=== PATIENT | male | born 1960 | race Caucasian/White ===

== ENCOUNTER 2017-02-04 01:04 | Emergency (ER) | payer MEDICAID ==
[~2017-02-04] VITALS: Ht 180.3 cm; Wt 102.0 kg
[~2017-02-04 01:04] MED LIST: DIVA125T2 PO; FLEXERIL; LISI-170 PO; LOPRESSOR; THORAZINE; TRAZ100T15 PO; TRAZADONE
[2017-02-04] MEDS ORDERED: SODIUM CHLORIDE FLUSH 10ML SYR IVF ONE (01:30)
[2017-02-04] MEDS ORDERED: ONDANSETRON 2MG/ML, 2ML IVPush ONE (01:30)
[2017-02-04] MEDS ORDERED: MORPHINE SULFATE 4 MG/ML, 1ML IVPush PRN (01:30)
[2017-02-04] MEDS ORDERED: NITROGLYCERIN OINT 2%, 1GM TP ONE ×2 (01:30→01:47)
[2017-02-04] MEDS ORDERED: MORPHINE SULFATE 4 MG/ML, 1ML ONE ×2 (01:47→03:04)
[2017-02-04 02:02] LABS: BLOOD UREA NITROGEN 7 mg/dL (7-18)
[2017-02-04 02:08] LABS: IS PT STATUS REG ER OR PRE ER? YES
[2017-02-04] MEDS ORDERED: MORPHINE SULFATE 4 MG/ML, 1ML IVPush ONE (03:30)
[2017-02-04 06:09] VITALS: BP 127/72
== END 2017-02-04 06:18 | disposition home or self-care (01) ==
LOC: ED 03:19
DX: R07.2 Precordial pain (principal); R11.2 Nausea with vomiting, unspecified; F17.200 Nicotine dependence, unspecified, uncomplicated; I10 Essential (primary) hypertension; F43.10 Post-traumatic stress disorder, unspecified
CPT/HCPCS: 36415; 71010; 80048; 82040; 83880; 84484; 85025; 85610; 85730; 93005; 96374; 96376

== ENCOUNTER 2017-04-13 12:36 | Emergency (ER) | payer SELFPAY ==
[~2017-04-13] VITALS: Ht 180.3 cm; Wt 80.0 kg
[2017-04-13] MEDS ORDERED: NITROGLYCERIN OINT 2%, 1GM TP ONE ×2 (13:00→13:15)
[2017-04-13] MEDS ORDERED: SODIUM CHLORIDE 0.9% 1,000ML IVBOLUS ONE (13:00)
[2017-04-13] MEDS ORDERED: SODIUM CHLORIDE FLUSH 10ML SYR IVF ONE (13:00)
[2017-04-13] MEDS ORDERED: LORazepam 0.5MG TABLET ONE (13:27)
[2017-04-13] MEDS ORDERED: LORazepam 0.5MG TABLET PO ONE (13:30)
[2017-04-13 14:02] LABS: HEMATOCRIT 51.7 % (39.2-51.8); HEMOGLOBIN 17.9 g/dL (13.7-18.0); WHITE BLOOD COUNT 8.8 x10^3/uL (3.4-10)
[2017-04-13 14:04] LABS: BLOOD UREA NITROGEN 12 mg/dL (7-18)
[2017-04-13 14:08] LABS: IS PT STATUS REG ER OR PRE ER? YES
[2017-04-13 14:53] VITALS: BP 137/88
== END 2017-04-13 14:57 | disposition home or self-care (01) ==
LOC: ED 13:58
DX: R07.89 Other chest pain (principal); E11.9 Type 2 diabetes mellitus without complications; I10 Essential (primary) hypertension; F17.200 Nicotine dependence, unspecified, uncomplicated; I48.91 Unspecified atrial fibrillation; F43.10 Post-traumatic stress disorder, unspecified
CPT/HCPCS: 36415; 71010; 80048; 82040; 83880; 84484; 85025; 93005; 96360; 99285; J7030

== ENCOUNTER 2017-04-17 22:46 | Observation (INO) | payer OTHER ==
[~2017-04-17] VITALS: Ht 180.3 cm; Wt 98.7 kg
[2017-04-17 23:45] LABS: HEMATOCRIT 48.5 % (39.2-51.8); WHITE BLOOD COUNT 8.9 x10^3/uL (3.4-10)
[2017-04-17 23:46] LABS: BLOOD UREA NITROGEN 6 mg/dL (7-18)
[2017-04-18 00:05] LABS: ACETAMINOPHEN < 2 mcg/mL (10-30)
[2017-04-18 00:11] LABS: DAU SCREEN DISCLAIMER
[2017-04-18] MEDS ORDERED: LORazepam 1MG TABLET ONE (09:02)
[2017-04-18] MEDS ORDERED: ASPIRIN 81 MG TABLET EC PO SCH (09:30)
[2017-04-18] MEDS ORDERED: NICOTINE 21 MG/24 HR PATCH.TD24 TD SCH (09:30)
[2017-04-18] MEDS ORDERED: ONDANSETRON ODT 4 MG PO PRN (09:30)
[2017-04-18] MEDS ORDERED: HALOPERIDOL 5 MG TABLET PO PRN (09:30)
[2017-04-18] MEDS ORDERED: LORazepam 1MG TABLET PO ONE (09:30)
[2017-04-18] MEDS ORDERED: DIVALPROEX 500 MG TAB.ER.24H PO SCH (09:30)
[2017-04-18] MEDS ORDERED: ACETAMINOPHEN 325 MG TABLET PO PRN (09:30)
[2017-04-18] MEDS: GUAIFENESIN 200 MG TABLET PO SCH ×3 (10:51→21:00)
[2017-04-18 11:04] VITALS: BP 127/67
[2017-04-18] MEDS: LORazepam 2 MG/ML, 1ML IM PRN ×2 (13:26→17:28)
[2017-04-18 19:31] VITALS: BP 122/69
[2017-04-18] MEDS: SIMVASTATIN 20 MG TABLET PO SCH (21:00)
[2017-04-19] MEDS: BACLOFEN 10 MG TABLET PO SCH ×3 (01:06→21:46)
[2017-04-19] MEDS: LORazepam 1MG TABLET PO PRN ×6 (01:07→23:58)
[2017-04-19 01:38] VITALS: BP 131/78
[2017-04-19 06:06] LABS: ASPARTATE AMINO TRANSFERASE 55 U/L (15-37); BLOOD UREA NITROGEN 10 mg/dL (7-18)
[2017-04-19] MEDS ORDERED: NICOTINE 21 MG/24 HR PATCH.TD24 TD SCH (07:00)
[2017-04-19] MEDS: FOLIC ACID 1 MG TABLET PO SCH (07:56)
[2017-04-19] MEDS: GUAIFENESIN 200 MG TABLET PO SCH ×3 (07:56→21:46)
[2017-04-19] MEDS: ASPIRIN 81 MG TABLET EC PO SCH (07:56)
[2017-04-19] MEDS: THIAMINE 100MG TABLET PO SCH (07:56)
[2017-04-19] MEDS: MULTIVITAMIN 1 TABLET PO SCH (07:56)
[2017-04-19 07:59] VITALS: BP 112/75
[2017-04-19 13:39] VITALS: BP 126/75
[2017-04-19 17:57] VITALS: BP 131/77
[2017-04-19 19:36] VITALS: BP 126/71
[2017-04-19] MEDS: SIMVASTATIN 20 MG TABLET PO SCH (21:47)
[2017-04-20] MEDS: LORazepam 1MG TABLET PO PRN ×2 (05:56→11:52)
[2017-04-20] MEDS: ASPIRIN 81 MG TABLET EC PO SCH (05:56)
[2017-04-20] MEDS: GUAIFENESIN 200 MG TABLET PO SCH ×2 (05:56→10:53)
[2017-04-20 07:22] VITALS: BP 136/87
[2017-04-20] MEDS: FOLIC ACID 1 MG TABLET PO SCH (08:15)
[2017-04-20] MEDS: THIAMINE 100MG TABLET PO SCH (08:15)
[2017-04-20] MEDS: BACLOFEN 10 MG TABLET PO SCH (08:15)
[2017-04-20] MEDS: MULTIVITAMIN 1 TABLET PO SCH (08:15)
== END 2017-04-20 15:03 ==
LOC: ED 23:59 → EDIP 04-18 08:02 → 3E 04-18 10:09 → UNDODISOB 04-18 20:11 → 4NOR 04-19 00:56 → 3E 04-19 17:33
PROVIDERS: ADMIT Hospitalist; ATTEND Internal Medicine
DX: R45.851 Suicidal ideations (principal); E11.9 Type 2 diabetes mellitus without complications; E78.5 Hyperlipidemia, unspecified; F10.220 Alcohol dependence with intoxication, uncomplicated; K70.10 Alcoholic hepatitis without ascites; F31.9 Bipolar disorder, unspecified; F41.1 Generalized anxiety disorder; F43.10 Post-traumatic stress disorder, unspecified; I10 Essential (primary) hypertension; I48.0 Paroxysmal atrial fibrillation; K74.60 Unspecified cirrhosis of liver; R45.850 Homicidal ideations; Y90.7 Blood alcohol level of 200-239 mg/100 ml; Z82.49 Family history of ischemic heart disease and other diseases of the circulatory system; Z86.73 Personal history of transient ischemic attack (TIA), and cerebral infarction without residual deficits; Z87.891 Personal history of nicotine dependence; Z90.49 Acquired absence of other specified parts of digestive tract
CPT/HCPCS: 36415; 80048; 80053; 80307; 80329; 82040; 83735; 85025; 93005; 96372; 99285; G0378; J2060; G0479; G0480

== ENCOUNTER 2017-04-23 00:15 | Observation (INO) | payer MEDICAID, OTHER ==
[~2017-04-23] VITALS: Ht 180.3 cm; Wt 97.3 kg
[2017-04-23] MEDS ORDERED: TRAZ50TA18 PO (00:28)
[2017-04-23] MEDS ORDERED: DIVA125T2 PO (00:28)
[2017-04-23 01:05] LABS: BLOOD UREA NITROGEN 10 mg/dL (7-18)
[2017-04-23 01:06] LABS: HEMATOCRIT 46.8 % (39.2-51.8); HEMOGLOBIN 16.2 g/dL (13.7-18.0); WHITE BLOOD COUNT 11.4 x10^3/uL (3.4-10)
[2017-04-23 01:15] LABS: ACETAMINOPHEN < 2 mcg/mL (10-30)
[2017-04-23] MEDS ORDERED: ACETAMINOPHEN 325 MG TABLET PO PRN (05:00)
[2017-04-23] MEDS ORDERED: LORazepam 1MG TABLET ONE ×2 (06:00→15:28)
[2017-04-23] MEDS: LORazepam 1MG TABLET PO PRN ×3 (06:01→15:31)
[2017-04-23] MEDS ORDERED: DIVALPROEX 125 MG TABLET.DR PO SCH (09:00)
[2017-04-23] MEDS ORDERED: TRAZODONE 50MG TABLET PO SCH (09:00)
[2017-04-23 17:27] LABS: DAU SCREEN DISCLAIMER
[2017-04-23 20:04] VITALS: BP 102/63
[2017-04-23] MEDS: TRAZODONE 50MG TABLET PO SCH (21:00)
[2017-04-24] MEDS: TRAZODONE 50MG TABLET PO SCH ×2 (00:07→20:14)
[2017-04-24 02:59] VITALS: BP 105/70
[2017-04-24] MEDS ORDERED: ONDANSETRON ODT 4 MG PO PRN ×3 (03:00→19:00)
[2017-04-24 08:38] VITALS: BP 111/72
[2017-04-24] MEDS ORDERED: LOPERAMIDE 2 MG CAPSULE PO PRN ×2 (09:00)
[2017-04-24] MEDS: LORazepam 1MG TABLET PO PRN ×2 (14:28→17:55)
[2017-04-24 19:30] VITALS: BP 96/57
[2017-04-24] MEDS: LOPERAMIDE 2 MG CAPSULE PO PRN (19:42)
[2017-04-24 20:10] VITALS: BP 103/64
[2017-04-25] MEDS: LOPERAMIDE 2 MG CAPSULE PO PRN ×2 (07:59→23:54)
[2017-04-25 08:55] VITALS: BP 105/63
[2017-04-25 19:37] VITALS: BP 101/62
[2017-04-25] MEDS: LORazepam 1MG TABLET PO PRN ×2 (19:40→19:46)
[2017-04-25] MEDS: OLANZAPINE 5 MG TABLET PO SCH (21:13)
[2017-04-25] MEDS: DIVALPROEX 500 MG TAB.ER.24H PO SCH (21:13)
[2017-04-26 08:00] VITALS: BP 101/60
[2017-04-26] MEDS: DIVALPROEX 500 MG TAB.ER.24H PO SCH ×2 (10:01→19:57)
[2017-04-26] MEDS: LOPERAMIDE 2 MG CAPSULE PO PRN (16:23)
[2017-04-26] MEDS: OLANZAPINE 5 MG TABLET PO SCH (19:58)
[2017-04-26 20:00] VITALS: BP 113/66
[2017-04-27 08:45] VITALS: BP 104/67
[2017-04-27] MEDS: DIVALPROEX 500 MG TAB.ER.24H PO SCH ×2 (08:53→21:05)
[2017-04-27] MEDS: FAMOTIDINE 20 MG TABLET PO SCH ×2 (10:48→21:05)
[2017-04-27] MEDS: LOPERAMIDE 2 MG CAPSULE PO PRN (14:55)
[2017-04-27 19:45] VITALS: BP 123/78
[2017-04-27] MEDS: OLANZAPINE 5 MG TABLET PO SCH (21:05)
[2017-04-28 08:00] VITALS: BP 112/71
[2017-04-28] MEDS: FAMOTIDINE 20 MG TABLET PO SCH ×2 (08:26→20:20)
[2017-04-28] MEDS: DIVALPROEX 500 MG TAB.ER.24H PO SCH ×2 (08:26→20:20)
[2017-04-28] MEDS: LORazepam 1MG TABLET PO PRN (14:00)
[2017-04-28 20:00] VITALS: BP 121/73
[2017-04-28] MEDS: OLANZAPINE 5 MG TABLET PO SCH (20:20)
[2017-04-29 07:30] VITALS: BP 137/80
[2017-04-29] MEDS: LOPERAMIDE 2 MG CAPSULE PO PRN (08:03)
[2017-04-29] MEDS: LORazepam 1MG TABLET PO PRN (08:03)
[2017-04-29] MEDS: FAMOTIDINE 20 MG TABLET PO SCH (08:03)
[2017-04-29] MEDS: DIVALPROEX 500 MG TAB.ER.24H PO SCH (08:03)
[2017-04-29] MEDS ORDERED: LACTULOSE 3.3 GM/5 ML ORAL.SOL RC STA (17:40)
[2017-04-29 18:54] LABS: ASPARTATE AMINO TRANSFERASE 20 U/L (15-37); BLOOD UREA NITROGEN 9 mg/dL (7-18)
[2017-04-29 18:57] LABS: HEMATOCRIT 45.6 % (39.2-51.8); HEMOGLOBIN 15.8 g/dL (13.7-18.0); WHITE BLOOD COUNT 8.9 x10^3/uL (3.4-10)
[2017-04-29] MEDS: LACTULOSE 20 GM/30 ML UDC PO SCH ×2 (21:00→22:16)
[2017-04-29 21:30] VITALS: BP 135/74
[2017-04-29] MEDS: D5%-LACTATED RINGERS 1,000 ML IV SCH (22:16)
[2017-04-30] MEDS ORDERED: LACTULOSE 20 GM/30 ML UDC PO ONE
[2017-04-30 00:05] VITALS: BP 135/74
[2017-04-30 00:48] VITALS: BP 142/82
[2017-04-30] MEDS: LORazepam 1MG TABLET PO PRN ×4 (01:00→22:04)
[2017-04-30] MEDS: D5%-LACTATED RINGERS 1,000 ML IV SCH (05:48)
[2017-04-30] MEDS: LACTULOSE 20 GM/30 ML UDC PO SCH ×4 (05:49→22:03)
[2017-04-30 06:11] LABS: ASPARTATE AMINO TRANSFERASE 22 U/L (15-37); BLOOD UREA NITROGEN 6 mg/dL (7-18)
[2017-04-30 06:15] LABS: HEMATOCRIT 43.5 % (39.2-51.8); HEMOGLOBIN 15.2 g/dL (13.7-18.0); WHITE BLOOD COUNT 8.4 x10^3/uL (3.4-10)
[2017-04-30] MEDS ORDERED: POTASSIUM CHLORIDE 20 MEQ TAB.ER.PRT PO ONE (06:30)
[2017-04-30 06:42] VITALS: BP 123/66
[2017-04-30] MEDS: D5%-LR+KCL 20MEQ 1,000 ML IV SCH ×2 (11:04→22:04)
[2017-04-30] MEDS ORDERED: POTASSIUM CHLORIDE 10 MEQ TABLET.ER ONE (11:07)
[2017-04-30 12:28] VITALS: BP 138/88
[2017-04-30] MEDS: ACETAMINOPHEN 325 MG TABLET PO PRN (13:05)
[2017-04-30 19:07] VITALS: BP 135/77
[2017-05-01 01:29] VITALS: BP 131/83
[2017-05-01] MEDS: ACETAMINOPHEN 325 MG TABLET PO PRN ×2 (02:12→19:42)
[2017-05-01] MEDS: LORazepam 1MG TABLET PO PRN ×4 (02:12→19:42)
[2017-05-01] MEDS: LACTULOSE 20 GM/30 ML UDC PO SCH ×3 (05:53→21:00)
[2017-05-01 06:43] LABS: BLOOD UREA NITROGEN 7 mg/dL (7-18); HIV 1&2 ANTIBODY SCREEN Nonreactive (Nonreactive); HIV-1 p24 ANTIGEN Nonreactive (Nonreactive)
[2017-05-01 07:01] LABS: HEP B SURF. AB < 3.1 mIU/mL (0.0-10.0)
[2017-05-01] MEDS ORDERED: POTASSIUM CHLORIDE 20 MEQ TAB.ER.PRT PO ONE (09:30)
[2017-05-01] MEDS ORDERED: LACTULOSE 3.3 GM/5 ML ORAL.SOL RC ONE (09:30)
[2017-05-01] MEDS: D5%-LR+KCL 20MEQ 1,000 ML IV SCH ×2 (10:26→17:03)
[2017-05-01] MEDS ORDERED: LACTULOSE 20 GM/30 ML UDC PO SCH (11:00)
[2017-05-01 15:03] VITALS: BP 130/76
[2017-05-01 20:00] VITALS: BP 160/105
[2017-05-01 21:34] VITALS: BP 140/82
[2017-05-02] MEDS: LORazepam 1MG TABLET PO PRN ×4 (01:09→21:16)
[2017-05-02] MEDS: ACETAMINOPHEN 325 MG TABLET PO PRN ×3 (01:09→21:16)
[2017-05-02 02:00] VITALS: BP 131/78
[2017-05-02] MEDS: D5%-LR+KCL 20MEQ 1,000 ML IV SCH (04:00)
[2017-05-02] MEDS: LACTULOSE 20 GM/30 ML UDC PO SCH ×4 (04:57→21:16)
[2017-05-02 06:48] VITALS: BP_SYST 130; BP_DIAS 80; BP_DIAS 82
[2017-05-02] MEDS ORDERED: LORazepam 2 MG/ML, 1ML IM PRN (08:00)
[2017-05-02] MEDS: ZIPRASIDONE 20 MG INJ IM PRN (12:45)
[2017-05-02 14:00] VITALS: BP 135/73
[2017-05-02 18:56] VITALS: BP 152/87
[2017-05-03] MEDS: ACETAMINOPHEN 325 MG TABLET PO PRN ×2 (01:11→05:31)
[2017-05-03] MEDS: LORazepam 1MG TABLET PO PRN ×4 (01:11→16:28)
[2017-05-03 01:20] VITALS: BP 129/78
[2017-05-03] MEDS: LACTULOSE 20 GM/30 ML UDC PO SCH ×4 (05:33→21:00)
[2017-05-03 08:01] VITALS: BP 141/83
[2017-05-03 13:55] VITALS: BP 123/82
[2017-05-03 19:05] VITALS: BP 144/83
[2017-05-03] MEDS: ZIPRASIDONE 20 MG INJ IM PRN (21:27)
[2017-05-04 02:23] VITALS: BP 162/89
[2017-05-04] MEDS: ACETAMINOPHEN 325 MG TABLET PO PRN (02:28)
[2017-05-04] MEDS: LORazepam 1MG TABLET PO PRN ×2 (02:28→13:16)
[2017-05-04] MEDS: ZIPRASIDONE 20 MG INJ IM PRN ×2 (03:55→20:59)
[2017-05-04] MEDS: LACTULOSE 20 GM/30 ML UDC PO SCH ×4 (06:00→20:58)
[2017-05-04 07:15] VITALS: BP 158/90
[2017-05-04] MEDS ORDERED: LORazepam 2 MG/ML, 1ML IM PRN (08:30)
[2017-05-04] MEDS: OLANZAPINE 5 MG TABLET PO SCH ×2 (10:11→13:15)
[2017-05-04 12:40] VITALS: BP 122/74
[2017-05-04] MEDS ORDERED: POTASSIUM CHLORIDE 20 MEQ TAB.ER.PRT PO ONE (18:30)
[2017-05-04 19:57] VITALS: BP 147/94
[2017-05-04] MEDS ORDERED: ZIPRASIDONE 20MG CAPSULE PO PRN (20:30)
[2017-05-05 07:07] LABS: BLOOD UREA NITROGEN 8 mg/dL (7-18)
[2017-05-05 08:00] VITALS: BP 118/73
[2017-05-05] MEDS: ACETAMINOPHEN 325 MG TABLET PO PRN (08:29)
[2017-05-05] MEDS: OLANZAPINE 5 MG TABLET PO SCH (08:29)
[2017-05-05] MEDS: LORazepam 1MG TABLET PO PRN (08:30)
[2017-05-05] MEDS: LACTULOSE 20 GM/30 ML UDC PO SCH ×4 (08:30→20:08)
[2017-05-05 19:30] VITALS: BP 137/83
[2017-05-05] MEDS: ZIPRASIDONE 20 MG INJ IM PRN (19:45)
[2017-05-06] MEDS: LACTULOSE 20 GM/30 ML UDC PO SCH ×4 (06:18→19:28)
[2017-05-06] MEDS: OLANZAPINE 5 MG TABLET PO SCH (08:11)
[2017-05-06] MEDS: LORazepam 1MG TABLET PO PRN ×3 (08:11→19:28)
[2017-05-06 08:45] VITALS: BP 116/73
[2017-05-06] MEDS: ASPIRIN 81 MG TABLET EC PO SCH (10:44)
[2017-05-06 19:30] VITALS: BP 164/75
[2017-05-07] MEDS: ASPIRIN 81 MG TABLET EC PO SCH (06:10)
[2017-05-07] MEDS: LACTULOSE 20 GM/30 ML UDC PO SCH ×4 (06:14→20:06)
[2017-05-07 07:35] VITALS: BP 102/70
[2017-05-07] MEDS: OLANZAPINE 5 MG TABLET PO SCH (08:05)
[2017-05-07] MEDS: LORazepam 1MG TABLET PO PRN ×2 (12:22→20:06)
[2017-05-07 19:23] VITALS: BP 117/73
[2017-05-08] MEDS: LACTULOSE 20 GM/30 ML UDC PO SCH ×4 (06:29→20:11)
[2017-05-08] MEDS: ASPIRIN 81 MG TABLET EC PO SCH (06:29)
[2017-05-08 07:07] VITALS: BP 133/89
[2017-05-08] MEDS: OLANZAPINE 5 MG TABLET PO SCH (08:05)
[2017-05-08] MEDS ORDERED: ACETAMINOPHEN 325 MG TABLET PO PRN (15:30)
[2017-05-08] MEDS ORDERED: ZIPRASIDONE 20MG CAPSULE PO PRN (15:30)
[2017-05-08] MEDS ORDERED: ZIPRASIDONE 20 MG INJ IM PRN (15:30)
[2017-05-08 19:17] VITALS: BP 113/65
[2017-05-08] MEDS ORDERED: TRAZODONE 100MG TABLET ONE (19:17)
[2017-05-08] MEDS ORDERED: TRAZODONE 100MG TABLET PO SCH (21:00)
[2017-05-09] MEDS ORDERED: ONDANSETRON ODT 4 MG PO ONE (05:30)
[2017-05-09] MEDS: LACTULOSE 20 GM/30 ML UDC PO SCH ×3 (05:55→16:34)
[2017-05-09] MEDS: ASPIRIN 81 MG TABLET EC PO SCH (05:56)
[2017-05-09 07:30] VITALS: BP 117/67
[2017-05-09] MEDS: OLANZAPINE 5 MG TABLET PO SCH (08:27)
== END 2017-05-09 18:24 ==
LOC: ED 00:25 → EDIP 03:03 → 3E 09:24 → 3NE 04-29 21:30 → 3E 05-04 19:52
PROVIDERS: ADMIT Hospitalist; ATTEND Hospitalist
DX: R45.851 Suicidal ideations (principal); E78.5 Hyperlipidemia, unspecified; E11.9 Type 2 diabetes mellitus without complications; F41.1 Generalized anxiety disorder; I10 Essential (primary) hypertension; Z86.73 Personal history of transient ischemic attack (TIA), and cerebral infarction without residual deficits; Z90.49 Acquired absence of other specified parts of digestive tract; K70.9 Alcoholic liver disease, unspecified; I48.91 Unspecified atrial fibrillation; F31.9 Bipolar disorder, unspecified; F20.9 Schizophrenia, unspecified; F17.200 Nicotine dependence, unspecified, uncomplicated; F43.10 Post-traumatic stress disorder, unspecified; E87.6 Hypokalemia; K70.40 Alcoholic hepatic failure without coma; K74.60 Unspecified cirrhosis of liver
CPT/HCPCS: 36415; 80048; 80053; 80307; 80329; 81001; 82040; 82140; 83735; 85025; 86703; 86706; 86708; 86803; 87324; 87899; 96360; 96361; 96372; 99285; G0378; J2060; J3480; J3486; Q0162; G0435; G0479; G0480; J7121

== ENCOUNTER 2017-06-10 22:30 | Emergency (ER) | payer MEDICAID, OTHER ==
[~2017-06-10] VITALS: Ht 175.3 cm; Wt 102.0 kg
[~2017-06-10 22:30] MED LIST changes: +TRAZ50TA18 PO
[2017-06-10] MEDS ORDERED: CLON2TAB16 PO (22:53)
[2017-06-11 00:17] LABS: ASPARTATE AMINO TRANSFERASE 41 U/L (15-37); BLOOD UREA NITROGEN 10 mg/dL (7-18)
[2017-06-11 00:20] LABS: HEMATOCRIT 46.4 % (39.2-51.8); HEMOGLOBIN 16.3 g/dL (13.7-18.0); WHITE BLOOD COUNT 7.9 x10^3/uL (3.4-10)
[2017-06-11 00:21] LABS: ACETAMINOPHEN < 2 mcg/mL (10-30)
[2017-06-11 06:38] VITALS: BP 113/79
== END 2017-06-11 09:25 | disposition home or self-care (01) ==
LOC: ED 23:02
DX: F10.220 Alcohol dependence with intoxication, uncomplicated (principal); I10 Essential (primary) hypertension; E11.9 Type 2 diabetes mellitus without complications; I48.91 Unspecified atrial fibrillation; Y90.9 Presence of alcohol in blood, level not specified; Z88.8 Allergy status to other drugs, medicaments and biological substances; Z98.890 Other specified postprocedural states; Z72.89 Other problems related to lifestyle; Z79.899 Other long term (current) drug therapy
CPT/HCPCS: 36415; 80053; 80307; 80329; 85025; 99284; G0479; G0480